=== PATIENT | female | born 1990 | race Caucasian/White ===

== ENCOUNTER 2016-07-23 12:37 | Emergency (ER) | payer MEDICAID ==
[2016-07-23] MEDS ORDERED: hydrOXYzine 25 MG TAB ONE (15:00)
[2016-07-23] MEDS ORDERED: KETOROLAC 60 MG/2 ML VIAL IM ONE (15:00)
[2016-07-23] MEDS ORDERED: NICOTINE 21 MG/24 HR TRANSDERM ONE ×2 (15:01→15:05)
[2016-07-23] MEDS ORDERED: hydrOXYzine 25 MG TAB PO ONE (15:05)
== END 2016-07-23 17:05 | disposition home or self-care (01) ==
LOC: ER 12:37
CPT/HCPCS: 36415; 80053; 80307; 80320; 80329; 81001; 83690; 84439; 84443; 84703; 85025; 87077; 87088; 87186; 96372